=== PATIENT | female | born 1965 | race Caucasian/White ===

== ENCOUNTER 2016-12-08 12:01 | Emergency (ER) | payer OTHER ==
[~2016-12-08 12:01] MED LIST: ALPRAZOLAM; BACTRIM DS TABL1 TAB PO; CELEXA PO; CLONIDINE PO; DICLOFENAC PO; DICYCLOMINE HCL20 MG PO; DOXYCYCLINE PO; FENOFIBRATE130 MG PO; FLEXERIL PO; FLEXERIL10 M1 PO; IBUPROFEN800 MG PO; KEPPRA500 M2 PO; KLONOPIN PO; LORTAB 101 TAB 10/5 PO; METHADONE PO; MIRALAX17 GM PO; MOTRIN PO; NAPROXEN PO; NEURONTIN PO; NO MEDICATIONS; NORVASC10 MG PO; PAXIL PO; PERCOCET PO; PHENERGAN PO; PHENERGAN25 MG PO; PRILOSEC PO; PRILOSEC20 MG PO; SEROQUEL PO; SEROQUEL XR150 MG PO; SEROQUEL XR200 MG PO; TERBINAFINE HC250 M1 PO; TOPROL XL PO; TRAZODONE PO; TRIGLIDE160 M1; VICODIN 5/500 T1 TAB PO; VISTARIL PO; VOLTAREN75 MG PO; [UNRECOGNIZED DRUG - OTHER]; [UNRECOGNIZED DRUG - OTHER] PO
[2016-12-08 13:37] LABS: BASOPHIL% 0.7 % (0-2.5); EOSINOPHIL# 0.1 X10e3 (0-0.7); EOSINOPHIL% 1.8 % (0.0-7.0); HEMATOCRIT 36.8 % (35.0-45.0); HEMOGLOBIN 12.3 gm/dL (12.0-16.0); LYMPHOCYTE# 1.7 X10e3 (1.0-3.5); LYMPHOCYTE% 23.3 % (17.0-45.0); MEAN CELL VOLUME 87.6 FL (83-96); MEAN CORPUSCULAR HEMOGLOBIN 29.2 PG (28-34); MEAN CORPUSCULAR HGB CONC 33.4 g/dL (30-36); MEAN PLATELET VOLUME 8.6 FL (6.5-11.5); MONOCYTE# 0.6 X10e3 (0-1.0); MONOCYTE% 8.5 % (3.0-12.0); NEUTROPHIL# 4.7 X10e3 (1.5-7.1); NEUTROPHIL% 65.7 % (40-75); PLATELET COUNT 242 X10e3 (140-420); RED CELL DISTRIBUTION WIDTH 13.9 % (11.0-15.5); WHITE BLOOD COUNT 7.2 X10e3 (4.0-10.5)
[2016-12-08 13:38] LABS: DIFF IND NO
[2016-12-08 13:56] LABS: CALCIUM SERUM 8.8 mg/dL (8.4-10.2); CREATININE SERUM 0.6 mg/dL (0.6-1.4); POTASSIUM 3.6 mmol/L (3.5-5.1)
== END 2016-12-08 14:57 | disposition home or self-care (01) ==
LOC: SED 12:01
PROVIDERS: Emergency Medicine
DX: L02.512 Cutaneous abscess of left hand (principal); G47.00 Insomnia, unspecified; F32.9 Major depressive disorder, single episode, unspecified; F41.9 Anxiety disorder, unspecified; K21.9 Gastro-esophageal reflux disease without esophagitis; F17.200 Nicotine dependence, unspecified, uncomplicated; Z90.49 Acquired absence of other specified parts of digestive tract
CPT/HCPCS: 10060; 36415; 80048; 85025; 96372; 99283; J1170; J2405

== ENCOUNTER 2017-01-17 14:11 | Emergency (ER) | payer OTHER ==
--- NOTE | ~2017-01-17 | CR117 ---
[facility] A Service of [facility] RADIOLOGY TEXT RESULTS PATIENT: ANALISA MAIER LOCATION: SED : 67 UNIT #: [id number] AGE: [address]: Serina Esquivel SEX: F ORDER DR: [id number] [address] [address] [id number] E MR#: [id number] Acc #: [id number] NAME: ANALISA MAIER. : 1965 SEX: F STUDY DATE/TIME: 01/17/2017 14:24 UNIT: SED ROOM: STUDY DESCRIPTION: CR Finger 2 View Thumb Rt Attending Physician: Serina Esquivel Pa-C Ordering Physician: Serina Esquivel Pa-C MEDICAL IMAGING REPORT This report is preliminary unless electronic signature is present. EXAMINATION 3 views, right thumb. DATE 01/17/2017 HISTORY Right thumb pain, swelling and cellulitis for 4 days. No documented injury. COMPARISON None. FINDINGS No fracture. No dislocation. No plain film evidence of osteomyelitis. No subcutaneous air is seen. No retained radiopaque foreign body. IMPRESSION Normal 3 views of the right thumb. Dictated by... Sarah Ramos M.D. THIS IS AN ELECTRONICALLY VERIFIED REPORT Sarah Ramos M.D. at 01/20/2017 8:32 AM MICHELLE/nicola TD: 01/17/2017 17:16 JOB #: [id number] MEDICAL IMAGING REPORT [facility] A Service of [facility] RADIOLOGY TEXT RESULTS PATIENT: ANALISA MAIER LOCATION: SED : 67 UNIT #: [id number] AGE: [address]: Serina Esquivel SEX: F ORDER DR: Page 1 of 1
== END 2017-01-17 15:03 | disposition home or self-care (01) ==
LOC: SED 14:11
DX: L03.011 Cellulitis of right finger (principal); F17.200 Nicotine dependence, unspecified, uncomplicated; K21.9 Gastro-esophageal reflux disease without esophagitis; F31.9 Bipolar disorder, unspecified; Z79.899 Other long term (current) drug therapy; X58.XXXA Exposure to other specified factors, initial encounter
CPT/HCPCS: 73140; 99283

== ENCOUNTER 2017-02-10 17:50 | Emergency (ER) | payer OTHER ==
--- NOTE | ~2017-02-10 | CR126 ---
[facility] A Service of [facility] RADIOLOGY TEXT RESULTS PATIENT: ANALISA MAIER LOCATION: SED : 67 UNIT #: [id number] AGE: [address]: Nevaeh Bartlett SEX: F ORDER DR: [id number] [place] [id number] E MR#: [id number] Acc #: [id number] NAME: ANALISA MAIER : 1965 SEX: F STUDY DATE/TIME: 02/10/2017 19:02 UNIT: SED ROOM: STUDY DESCRIPTION: CR Foot Complete Min 3 View Lt Attending Physician: Nevaeh Bartlett Pa-C Ordering Physician: Nevaeh Bartlett Pa-C Primary Care Physician: Charli Vásquez M.D. MEDICAL IMAGING REPORT This report is preliminary unless electronic signature is present. EXAM Left foot, 02/10 INDICATION Foot redness and swelling that started 3-4 days ago on the top of the foot and laterally. No trauma. FINDINGS Three views of the left foot were obtained. There is some degenerative disease of the first MTP joint and there is probably a small bunion on the head of the first metatarsal. No fracture or malalignment is seen. There is some soft tissue swelling on the dorsum of the foot, but there is no soft tissue gas or radiopaque foreign body. IMPRESSION Soft tissue swelling without soft tissue gas or radiopaque foreign body. No fracture. Mild degenerative disease of the first MTP joint with a small bunion on the head of the first metatarsal. Dictated by... Stephan Lawrence Jr., M.D. THIS IS AN ELECTRONICALLY VERIFIED REPORT Stephan Lawrence Jr., M.D. at 02/11/2017 10:04 AM CORTES/christian TD: 02/11/2017 07:58 JOB #: [id number] MEDICAL IMAGING REPORT Page 1 of 1
== END 2017-02-10 19:59 | disposition home or self-care (01) ==
LOC: SED 17:50
DX: L03.116 Cellulitis of left lower limb (principal); I10 Essential (primary) hypertension; K21.9 Gastro-esophageal reflux disease without esophagitis; F31.9 Bipolar disorder, unspecified; F17.210 Nicotine dependence, cigarettes, uncomplicated; Z90.49 Acquired absence of other specified parts of digestive tract; Z98.890 Other specified postprocedural states
CPT/HCPCS: 73630; 99283

== ENCOUNTER 2017-02-13 13:16 | Inpatient (IN) | payer OTHER ==
--- NOTE | ~2017-02-13 | DS ---
Unit #: [id number] #: [id number] Patient: ANALISA MAIER [id number] [address] [address] [id number] I MR#: [id number] NAME: ANALISA MAIER. ROOM: 469 Age: 51 Sex: F Admission Date: 02/13/2017 : 1965 Discharge Date: 02/16/2017 Attending Physician: Charli Vásquez M.D. Primary Care Physician: Charli Vásquez M.D. DISCHARGE SUMMARY PRINCIPAL DISCHARGE DIAGNOSES 1. Abscess, left anterior foot. 2. Status post incision and drainage of left foot 02/14/17. 3. Bipolar disorder. 4. Generalized anxiety disorder. 5. Major depressive disorder. 6. Tobacco use. 7. Hypertension. 8. Hyperglycemia with normal hemoglobin A1c. 9. Anemia of chronic disease. 10. Metabolic acidosis. PROCEDURE I and D 02/14/17 of left foot by Dr. Brooks. NETWORK COORDINATOR LSA. REASON FOR HOSPITALIZATION 51-year-old white female was apparently at [facility] when she developed a blister on the top of her left foot. Treated with p.o. antibiotics as an outpatient but worsening. Subsequently, directed admitted by her primary care physician for further evaluation. She was admitted, placed on broad spectrum antibiotics, underwent I and D of the left foot on the , had hyperglycemia on admission. Hemoglobin A1c was checked and was within normal limits. The patient tolerated surgery well. Her wound is dry and clean without any evidence of infection currently. Dr. Brooks, the surgeon, feels that she can be discharged home with dressing changes and outpatient followup but no p.o. antibiotics. She is on a regular diet as tolerates. CURRENT MEDICATIONS 1. Prilosec 40 mg p.o. daily. 2. [place] 10/325, one q.4 to 6 hours p.r.n. for pain, #60 with no refills. 3. Neurontin 600 mg p.o. t.i.d. 4. Paxil 20 mg p.o. daily. 5. Seroquel XR 400 mg p.o. daily. 6. Klonopin 1 mg p.o. q.i.d. 7. Amlodipine 10 mg p.o. daily. 8. Clonidine 0.2 mg p.o. b.i.d. She will follow up with Dr. Vásquez in one week and follow up with Dr. Brooks in one to two weeks. She is to have wet to dry dressing changes Unit #: [id number] #: [id number] Patient: LIVIERANALISAEdith Moseley b.i.d. Dictated by... Evelio Oliva/leidy TD: 02/18/2017 08:29 JOB #: [id number] DISCHARGE SUMMARY Page 1 of 1 X Praveen Pfeiffer MD X DISCHARGE SUMMARY
--- NOTE | ~2017-02-13 | DS ---
Unit #: [id number] #: [id number] Patient: ANALISA JOHNS [id number] [address] [address] [id number] I MR#: [id number] NAME: ANALISA JOHNS ROOM: 469 Age: 51 Sex: F Admission Date: 02/13/2017 : 1965 Discharge Date: 02/16/2017 Attending Physician: Charli Vásquez M.D. Primary Care Physician: Charli Vásquez M.D. DISCHARGE SUMMARY HOSPITAL COURSE Ms. Johns is a 51-year-old female who presented in the emergency room with a wound on the dorsum of the left foot that measured 6 x 5 cm. It was necrotic with fluctuance, edema and cellulitis. She is admitted to the hospital and started on IV antibiotics and taken to the operating room where she underwent full thickness debridement of the necrotic sound down to the tendons. She was admitted to the hospital and continued on IV antibiotics. Dressing changes were initiated. Physical therapy saw the patient to teach partial weightbearing. She has been taught dressing changes and VNA has been asked to see the patient to assist her at home. She will be discharged home today in stable condition. She is to continue her dressing changes twice a day and followup in the office in one to two weeks. She was given a prescription for a walker at physical therapy's recommendation. A prescription for hydrocodone was left. Med reconciliation sheet was completed. Dictated by... Stephan Brooks M.D. NANCY/ellis TD: 02/18/2017 08:05 JOB #: [id number] DISCHARGE SUMMARY Page 1 of 1 X Stephan Brooks MD X DISCHARGE SUMMARY
--- NOTE | ~2017-02-13 | HP ---
Unit #: [id number] #: [id number] Patient: ANALISA MAIER [id number] [address] [place], [place] [address] [id number] I MR#: [id number] NAME: ANALISA MAIER. ROOM: 469 Age: 51 Sex: F Admission Date: 02/13/2017 : 1965 Attending Physician: Charli Vásquez M.D. Primary Care Physician: Charli Vásquez M.D. HISTORY AND PHYSICAL HISTORY AND EXAM Ms. Maier is a 51-year-old female who went to the [facility] with her daughter and granddaughter. She developed a blister on the anterior portion of the left foot. This has had progressive swelling, erythema and now has a necrotic eschar measuring 6 x 5 cm over the dorsum of the foot. Plain x-rays showed no fracture or foreign body. She does not recall any trauma. PAST MEDICAL HISTORY Hypertension, mitral valve prolapse, remote history of seizures, depression, , T and A, appendectomy, bipolar disorder, appendectomy, reflux. HOME MEDICATIONS Are documented on the reconciliation sheet and include Paxil, Norvasc, Catapres, Seroquel, Klonopin, Prilosec, and Neurontin. ALLERGIES No allergies to medication. FAMILY HISTORY Diabetes and hypertension. SOCIAL HISTORY Lives with family at home, pack a day smoker. Denies the use of alcohol or recreational drugs. REVIEW OF SYSTEMS She denies trauma to the foot, otherwise unremarkable. PHYSICAL EXAMINATION VITAL SIGNS: Current temperature is 91, pulse 63, respirations 17, blood pressure 98/67. She is awake, alert and oriented in no acute distress. HEENT: Unremarkable. CARDIAC: Regular rhythm. LUNGS: Clear. ABDOMEN: Soft. EXTREMITIES: 6 x 5 cm black eschar over the dorsum of the left foot with associated cellulitis and probable underlying purulence because it is fluctuant but it is exquisitely tender. She has good vascular supply. NEUROLOGIC: Grossly intact. DIAGNOSTIC STUDIES LABORATORY STUDIES: Chemistries are unremarkable. White count 5,100, Unit #: [id number] #: [id number] Patient: ANALISA MAIER hemoglobin 10.8, platelets 158,000. IMAGING STUDIES: Plain films - no foreign body, no fracture, no dislocation. ASSESSMENT AND PLAN 51-year-old female who has developed a necrotic eschar over the dorsal left foot with associated cellulitis. It is exquisitely tender but I believe it to be fluctuant. She needs operative debridement. She is already on appropriate antibiotics. I discussed procedures with the patient including the risks, benefits, complications, postoperative expectations, and she understands and agrees to proceed. Dictated by Evelio Lu/ellis TD: 02/14/2017 08:26 JOB #: [id number] HISTORY AND PHYSICAL Page 1 of 1 X Stephan Brooks MD X HISTORY AND PHYSICAL
--- NOTE | ~2017-02-13 | HP ---
Unit #: [id number] #: [id number] Patient: ANALISA JOHNS [id number] [address] [place], [place] [address] [id number] I MR#: [id number] NAME: ANALISA JOHNS. ROOM: 469 Age: 51 Sex: F Admission Date: 02/13/2017 : 1965 Attending Physician: Charli Vásquez M.D. Primary Care Physician: Charli Vásquez M.D. HISTORY AND PHYSICAL ADMISSION DIAGNOSES 1. Left foot cellulitis. 2. Bipolar disorder. 3. Depression and anxiety. 4. Tobacco use. 5. Hypertension. 6. Hyperglycemia with questionable daily. 7. Anemia of chronic disease. 8. Metabolic acidosis. HISTORY OF PRESENT ILLNESS Miss Johns is a 51-year-old female patient of Dr. Vásquez who apparently went to [facility] with her family, since then developed the blisters on her left foot, was treated with the p.o. antibiotics as an outpatient. However, her lesion was getting worse and subsequently directly admitted by primary care physician for further evaluation. She is currently status post General Surgery evaluation and patient went down to OR and had the debridement of her left foot cellulitis. She denies any chest pain, shortness of air or dyspnea, fever or chills, nausea or vomiting, diarrhea or abdominal pain, states that her pain is well managed currently. REVIEW OF SYSTEMS A 12-point review of systems on this patient is basically negative except as above. PAST MEDICAL HISTORY Past medical history is significant for a history of: 1. Hypertension. 2. Depression/anxiety. 3. Bipolar disorder. PAST SURGICAL HISTORY Past surgical history is significant for: 1. . 2. Appendectomy. HOME MEDICATIONS She apparently was taking Seroquel, Klonopin, clonidine, Prilosec and Neurontin along with the Paxil and Norvasc. ALLERGIES No known drug allergies. Unit #: [id number] #: [id number] Patient: ANALISA JOHNS SOCIAL HISTORY She is a smoker, denies any alcohol or illicit drugs. FAMILY HISTORY Unremarkable. PHYSICAL EXAMINATION GENERAL: On the physical exam patient is a somewhat disheveled 51-year-old female not in acute distress. VITAL SIGNS: BP 104/65. Heart rate 69. Respirations 18. Temperature 98.1. HEENT: Head is atraumatic. Pupils equal, round and reactive to light and accommodation. Extraocular muscles intact. Oropharynx clear. NECK: Neck is supple. No mass. No JVD. No bruits. CHEST: Diminished bilaterally. CARDIOVASCULAR EXAM: S1, S2. No murmurs. ABDOMEN: Abdomen is soft, nontender and nondistended. EXTREMITIES: Lower extremities without any significant cyanosis, clubbing or edema on the right. On the left she has extensive clean dressing currently including foot and lower extremity below the knee. NEUROLOGIC: Patient grossly intact without any focal deficits. DIAGNOSTIC STUDIES IMAGING: X-ray was unremarkable. LABORATORY: Hemoglobin and hematocrit 10.8 and 34.1, white count 5.1. Chemistry significant for blood glucose of 142, bicarb of 19. ASSESSMENT AND PLAN 1. Left foot cellulitis status post debridement per Surgery: Continue local wound care. Continue current antibiotics. 2. Extensive psych history including depression, anxiety, bipolar disorder: Resume home medications. 3. Hypertension: Continue home meds. 4. Hyperglycemia: Will check hemoglobin A1C, rule out diabetes, will cover with the low sliding scale. 5. Metabolic acidosis: Monitor chemistry panel. Consider nephrology evaluation. 6. Anemia of chronic disease, stable. 7. GI and DVT prophylaxis: Continue Protonix. Will start on heparin 5000 units subcu b.i.d. Dictated by Andrés Echeverria M.D. OC/campos TD: 02/14/2017 21:27 JOB #: [id number] Unit #: [id number] #: [id number] Patient: ANALISA JOHNS HISTORY AND PHYSICAL Page 1 of 1 X Andrés Echeverria MD HISTORY AND PHYSICAL
--- NOTE | ~2017-02-13 | OR ---
Unit #: [id number] #: [id number] Patient: ANALISA MAIER [id number] [address] [place], [place] [address] [id number] I MR#: [id number] NAME: ANALISA MAIER. ROOM: 469 Date of Procedure: 02/14/2017 Admission Date: 02/13/2017 Surgeon: Stephan Brooks M.D. : 1965 Attending Physician: Charli Vásquez M.D. Primary Care Physician: Charli Vásquez M.D. OPERATIVE REPORT PREOPERATIVE DIAGNOSIS 6 x 5 cm abscess left dorsum of the foot with superficial skin necrosis. POSTOPERATIVE DIAGNOSIS 6 x 5 cm abscess left dorsum of the foot with superficial skin necrosis. PROCEDURE PERFORMED Incision and drainage of abscess with sharp excisional debridement of necrotic tissue of the left anterior foot measuring 6 x 5 cm and extending down to the tendon sheaths. Aerobic and anaerobic cultures were taken. ANESTHESIA General endotracheal anesthesia. ESTIMATED BLOOD LOSS 30 mL. INDICATIONS FOR PROCEDURE A 51-year-old female presented to the hospital with a fluctuant necrotic abscess to the dorsum of the left foot with associated cellulitis. DESCRIPTION OF PROCEDURE The patient was transported from her hospital room to the operating room, and after induction of general endotracheal anesthesia, the left foot and ankle up to the mid calf were prepped and draped in usual sterile fashion. The necrotic eschar was opened and thick purulent drainage was encountered and cultures were taken. We then suctioned out the purulent drainage and then sharply debrided all the necrotic and nonviable tissue from the wound. The wound extended down through the substance of the foot to the tendon sheaths. The tendons were not involved. Once it had been completely debrided and all necrotic and infected material removed, I irrigated and then obtained hemostasis using cautery. The wound was packed with fluffs, sponges soaked in Betadine and wrung out followed by dry 4x4s, Kerlix, and an [place] wrap. Sponges and needle counts were correct x3. The patient tolerated the procedure well and was transported to recovery in stable condition. She will be readmitted to her hospital room for continued IV antibiotics and initiation of local wound care in the morning. There was no family available at the end of the case to discuss the findings with. The wound measured 6 x 5 cm. Dictated by... Unit #: [id number] #: [id number] Patient: ANALISA MAIER M.D. RS/damion TD: 02/15/2017 03:00 JOB #: [id number] OPERATIVE REPORT Page 1 of 1 X Stephan Brooks MD PROCEDURE OPERATIVE NOTE
[2017-02-13 14:02] LABS: BASOPHIL% 0.5 % (0-2.5); EOSINOPHIL# 0.1 X10e3 (0-0.7); EOSINOPHIL% 2.3 % (0.0-7.0); HEMATOCRIT 37.3 % (35.0-45.0); HEMOGLOBIN 12.1 gm/dL (12.0-16.0); LYMPHOCYTE# 1.5 X10e3 (1.0-3.5); LYMPHOCYTE% 29.9 % (17.0-45.0); MEAN CELL VOLUME 88.3 FL (83-96); MEAN CORPUSCULAR HEMOGLOBIN 28.7 PG (28-34); MEAN CORPUSCULAR HGB CONC 32.5 g/dL (30-36); MEAN PLATELET VOLUME 9.1 FL (6.5-11.5); MONOCYTE# 0.6 X10e3 (0-1.0); MONOCYTE% 11.3 % (3.0-12.0); NEUTROPHIL# 2.9 X10e3 (1.5-7.1); PLATELET COUNT 171 X10e3 (140-420); RED BLOOD COUNT 4.22 X10e (3.90-5.30); RED CELL DISTRIBUTION WIDTH 15.3 % (11.0-15.5); WHITE BLOOD COUNT 5.1 X10e3 (4.0-10.5)
[2017-02-13 14:08] LABS: DIFF IND NO
[2017-02-13 14:18] LABS: BUN/CREATININE RATIO 19.09; CALCIUM SERUM 8.7 mg/dL (8.4-10.2); CREATININE SERUM 1.1 mg/dL (0.6-1.4); GLOM FILT RATE Estimated 58.9 mL/min (>60); POTASSIUM 3.9 mmol/L (3.5-5.1)
[2017-02-13] MEDS ORDERED: NORVASC10 MG PO (14:40)
[2017-02-14 02:21] LABS: BASOPHIL% 0.7 % (0-2.5); EOSINOPHIL# 0.1 X10e3 (0-0.7); EOSINOPHIL% 2.6 % (0.0-7.0); HEMATOCRIT 34.1 % (35.0-45.0); HEMOGLOBIN 10.8 gm/dL (12.0-16.0); LYMPHOCYTE# 1.3 X10e3 (1.0-3.5); LYMPHOCYTE% 25.1 % (17.0-45.0); MEAN CELL VOLUME 88.2 FL (83-96); MEAN CORPUSCULAR HGB CONC 31.7 g/dL (30-36); MEAN PLATELET VOLUME 8.9 FL (6.5-11.5); MONOCYTE# 0.6 X10e3 (0-1.0); MONOCYTE% 12.3 % (3.0-12.0); NEUTROPHIL% 59.3 % (40-75); PLATELET COUNT 158 X10e3 (140-420); RED BLOOD COUNT 3.86 X10e (3.90-5.30); RED CELL DISTRIBUTION WIDTH 14.9 % (11.0-15.5); WHITE BLOOD COUNT 5.1 X10e3 (4.0-10.5)
[2017-02-14 02:22] LABS: DIFF IND NO
[2017-02-14 02:44] LABS: ALBUMIN SERUM 3.1 g/dL (3.5-5.0); BILIRUBIN,TOTAL 0.5 mg/dL (0.2-2.0); BUN/CREATININE RATIO 28.33; CALCIUM SERUM 8.2 mg/dL (8.4-10.2); CREATININE SERUM 0.6 mg/dL (0.6-1.4); POTASSIUM 3.8 mmol/L (3.5-5.1); PROTEIN TOTAL SERUM 6.5 g/dL (6.0-8.3)
[2017-02-15 03:00] LABS: HEMATOCRIT 37.3 % (35.0-45.0); HEMOGLOBIN 11.9 gm/dL (12.0-16.0); MEAN CORPUSCULAR HEMOGLOBIN 27.9 PG (28-34); MEAN CORPUSCULAR HGB CONC 31.7 g/dL (30-36); MEAN PLATELET VOLUME 9.1 FL (6.5-11.5); RED BLOOD COUNT 4.24 X10e (3.90-5.30); RED CELL DISTRIBUTION WIDTH 14.9 % (11.0-15.5); WHITE BLOOD COUNT 4.7 X10e3 (4.0-10.5)
[2017-02-15 03:49] LABS: BUN/CREATININE RATIO 14.28; CALCIUM SERUM 8.4 mg/dL (8.4-10.2); CREATININE SERUM 0.7 mg/dL (0.6-1.4); GLOM FILT RATE Estimated 101.7 mL/min (>60); POTASSIUM 4.3 mmol/L (3.5-5.1)
[2017-02-16] MEDS ORDERED: LORCET HD 10-31 EACH PO (10:31)
[2017-02-16] MEDS ORDERED: DAKIN'S473 M1 TOP (10:36)
== END 2017-02-16 13:11 | disposition home health service (06) | DRG 571 ==
LOC: SED 13:16 → SEDOF 13:49 → SED 13:49 → SEDOF 14:20 → C4C 14:20 → SEDOF 16:08 → C4C 02-16 13:11
PROVIDERS: Emergency Medicine; Internal Medicine; Specialist; Surgery
PROC: 0J9R0ZZ Drainage of Left Foot Subcutaneous Tissue and Fascia, Open Approach (ICD-10-PCS; 2017-02-14)
PROC: 0JBR0ZZ Excision of Left Foot Subcutaneous Tissue and Fascia, Open Approach (ICD-10-PCS; principal; 2017-02-14 12:30)
DX: L02.612 Cutaneous abscess of left foot (principal); E87.2 Acidosis; F31.9 Bipolar disorder, unspecified; Z83.3 Family history of diabetes mellitus; F41.8 Other specified anxiety disorders; D63.8 Anemia in other chronic diseases classified elsewhere; R73.9 Hyperglycemia, unspecified; F41.1 Generalized anxiety disorder; Z72.0 Tobacco use
CPT/HCPCS: 36415; 80048; 80053; 80202; 82947; 83036; 84703; 85025; 85027; 86140; 87070; 87075; 87205; 88304; 88312; 96365; 96375; 97116; 97162; 99284; J1170; J1644; J1815; J1885; J1956; J2250; J2270; J2405; J2550; J3010; J3370

== ENCOUNTER → 2017-03-18 | Day surgery (SDC) | payer OTHER ==
[~2017-03-18] MED LIST changes: +DAKIN'S473 M1 TOP; +LORCET HD 10-31 EACH PO
--- NOTE | ~2017-03-18 | OR ---
Unit #: [id number] #: [id number] Patient: ANALISA MAIER [id number] [address] [place], [place] [address] [id number] O MR#: [id number] NAME: ANALISA MAIER ROOM: Date of Procedure: 03/18/2017 Admission Date: 03/18/2017 Surgeon: Stephan Brooks M.D. : 1965 Attending Physician: Stephan Brooks M.D. Primary Care Physician: Charli Vásquez M.D. PROCEDURE OPERATIVE NOTE PREOPERATIVE DIAGNOSIS Non-healing wound of the left foot. POSTOPERATIVE DIAGNOSIS Non-healing wound of the left foot. PROCEDURE PERFORMED Sharp excisional debridement down to the deep subcutaneous tissue and tendons measuring 5 x 6 cm. Placement of an EpiFix graft. Application code 79108, product code Q4131 using a 4 x 4.5 cm sheet for a total of 11 units. SURGEON Stephan Brooks M.D. ANESTHESIA General endotracheal. INDICATION Ms. Maier is a 51-year-old female who initially presented to the hospital with a full thickness, necrotic wound to the dorsum of the left foot. She had associated cellulitis, was admitted to the hospital and given antibiotics and underwent initial surgical debridement. Dressing changes were initiated and on her first followup in the office, she still had some nonviable tissue and failure of granulation with exposed tendons. She is being brought in today for further debridement and grafting of the wounds since it shows no evidence of granulation or healing. PROCEDURE The patient was admitted to [facility]. [facility], positively identified, transported to the operating room where, after induction of general endotracheal anesthesia, her left foot, ankle and lower leg were prepped and draped in the usual sterile fashion. Using scissors and a scalpel, sharp debridement of all nonviable tissue was performed. The tendons were intact. I irrigated with saline and obtained hemostasis and then a 4 x 4.5 cm EpiFix mesh was placed. It was gently irrigated and then a nonadherent dressing was placed over the mesh followed by 4 x 4 dressing sponges, Kerlix and Coban. After it was adequately dressed, the patient was transported to recovery in stable condition. Postoperative instructions were discussed with her mother who will be transporting the patient home. Unit #: [id number] #: [id number] Patient: ANALISA MAIER Dictated by... Evelio Lu/leidy TD: 04/01/2017 05:58 JOB #: [id number] PROCEDURE OPERATIVE NOTE Page 1 of 1 X Stephan Brooks MD PROCEDURE OPERATIVE NOTE
--- NOTE | ~2017-03-18 | EKG ---
PATIENT: ANALISA MAIER UNIT #: [id number] Ventricular Rate: 69 BPM Atrial Rate: 69 BPM P-R Interval: 154 ms QRS Duration: 92 ms Q-T Interval: 410 ms QTC Calculation(Bezet): 439 ms P [place]: 75 degrees Calculated R [place]: 51 degrees Calculated T [place]: 51 degrees Diagnosis Line: Normal sinus rhythm Diagnosis Line: Normal ECG Diagnosis Line: When compared with ECG of 27-AUG-2015 17:08, Diagnosis Line: No significant change was found Diagnosis Line: Confirmed by HIGINIO MCNEAL MD ([id number]) on Diagnosis Line: 03/19/2017 8:29:03 AM INTERPRETING MD: ELIZABET TSANG
[2017-03-18 10:20] LABS: BASOPHIL% 0.9 % (0-2.5); EOSINOPHIL# 0.2 X10e3 (0-0.7); EOSINOPHIL% 3.9 % (0.0-7.0); HEMATOCRIT 37.1 % (35.0-45.0); HEMOGLOBIN 11.8 gm/dL (12.0-16.0); LYMPHOCYTE# 1.5 X10e3 (1.0-3.5); LYMPHOCYTE% 35.4 % (17.0-45.0); MEAN CELL VOLUME 88.4 FL (83-96); MEAN CORPUSCULAR HEMOGLOBIN 28.1 PG (28-34); MEAN CORPUSCULAR HGB CONC 31.7 g/dL (30-36); MEAN PLATELET VOLUME 8.8 FL (6.5-11.5); MONOCYTE# 0.4 X10e3 (0-1.0); MONOCYTE% 8.7 % (3.0-12.0); NEUTROPHIL# 2.2 X10e3 (1.5-7.1); NEUTROPHIL% 51.1 % (40-75); PLATELET COUNT 169 X10e3 (140-420); RED CELL DISTRIBUTION WIDTH 15.9 % (11.0-15.5); WHITE BLOOD COUNT 4.3 X10e3 (4.0-10.5)
[2017-03-18 10:21] LABS: DIFF IND NO
[2017-03-18 11:21] LABS: BUN/CREATININE RATIO 18.75; CALCIUM SERUM 9.1 mg/dL (8.4-10.2); CREATININE SERUM 0.8 mg/dL (0.6-1.4); GLOM FILT RATE Estimated 86.6 mL/min (>60); POTASSIUM 3.9 mmol/L (3.5-5.1)
== END | disposition home or self-care (01) ==
LOC: CSUR 08:30
PROVIDERS: Specialist
DX: T81.4XXA Infection following a procedure, initial encounter (principal); S91.302A Unspecified open wound, left foot, initial encounter; L02.91 Cutaneous abscess, unspecified; F17.210 Nicotine dependence, cigarettes, uncomplicated; Z79.899 Other long term (current) drug therapy; Z90.49 Acquired absence of other specified parts of digestive tract; Z98.890 Other specified postprocedural states; Y83.8 Other surgical procedures as the cause of abnormal reaction of the patient, or of later complication, without mention of misadventure at the time of the procedure
CPT/HCPCS: 15275; Q4131; 80048; 84703; 85025; 93005; C1713; J2250; J2405; J3010; J3370

== ENCOUNTER 2017-03-25 19:28 | Emergency (ER) | payer OTHER ==
--- NOTE | ~2017-03-25 | CT16 ---
[facility] A Service of [facility] RADIOLOGY TEXT RESULTS PATIENT: ANALISA MAIER LOCATION: SED : [birth year] UNIT #: [id number] AGE: [address]: Clovis Frias MD SEX: F ORDER DR: [id number] [place] [id number] MR#: [id number] Acc #: [id number] NAME: ANALISA MAIER. : 1965 SEX: F STUDY DATE/TIME: 03/25/2017 21:13 UNIT: SED ROOM: STUDY DESCRIPTION: CT Angio Chest for PE Attending Physician: Clovis Frias M.D. Ordering Physician: Clovis Frias M.D. Primary Care Physician: Charli Vásquez M.D. MEDICAL IMAGING REPORT This report is preliminary unless electronic signature is present. EXAM Chest CTA 03/25/2017 21:13 INDICATION Chest pain, shortness of air started today. Elevated D-dimer. TECHNIQUE Axial images were obtained through the chest following IV contrast administration. 3-D reformats were obtained. No comparison. This CT examination was performed with one or more of the following radiation dose reduction techniques: automatic exposure control, adjustment of mA and/or kV according to patient size, and iterative reconstruction. FINDINGS There is no pulmonary embolism or aortic dissection. There is no pleural or pericardial effusion. There is no adenopathy. There is emphysema. There is dependent atelectasis in both lungs. The lungs are otherwise clear. Upper abdomen shows a distended but otherwise normal gallbladder. No biliary obstruction is seen. IMPRESSION 1. No pulmonary embolism or aortic dissection. 2. Emphysema. Lungs are clear except for some bilateral mild dependent atelectasis. 3. Mildly distended but otherwise normal gallbladder. Dictated by... Stephan Lawrence Jr., M.D. THIS IS AN ELECTRONICALLY VERIFIED REPORT Stephan Lawrence Jr., M.D. at 03/26/2017 9:[address] [facility] A Service of [facility] RADIOLOGY TEXT RESULTS PATIENT: ANALISA MAIER [facility] #: [id number] : [birth year] UNIT #: [id number] AGE: [address]: Clovis Frias MD SEX: F ORDER DR: CORTES/rajesh TD: 03/26/2017 08:48 JOB #: [id number] MEDICAL IMAGING REPORT Page 1 of 1
--- NOTE | ~2017-03-25 | EKG ---
PATIENT: ANALISA MAIER UNIT #: [id number] Ventricular Rate: 84 BPM Atrial Rate: 84 BPM P-R Interval: 152 ms QRS Duration: 86 ms Q-T Interval: 384 ms QTC Calculation(Bezet): 453 ms P [place]: 65 degrees Calculated R [place]: 21 degrees Calculated T [place]: 51 degrees Diagnosis Line: Normal sinus rhythm Diagnosis Line: Normal ECG Diagnosis Line: When compared with ECG of 18-MAR-2017 09:11, Diagnosis Line: No significant change was found Diagnosis Line: Confirmed by HIGINIO MCNEAL MD ([id number]) on Diagnosis Line: 03/26/2017 2:34:00 PM INTERPRETING MD: ELIZABET TSANG
[2017-03-25 20:29] LABS: BASOPHIL% 0.6 % (0-2.5); EOSINOPHIL# 0.1 X10e3 (0-0.7); EOSINOPHIL% 1.9 % (0.0-7.0); HEMATOCRIT 35.8 % (35.0-45.0); HEMOGLOBIN 11.7 gm/dL (12.0-16.0); MEAN CELL VOLUME 87.4 FL (83-96); MEAN CORPUSCULAR HEMOGLOBIN 28.5 PG (28-34); MEAN CORPUSCULAR HGB CONC 32.6 g/dL (30-36); MEAN PLATELET VOLUME 8.3 FL (6.5-11.5); MONOCYTE# 0.5 X10e3 (0-1.0); NEUTROPHIL# 3.2 X10e3 (1.5-7.1); NEUTROPHIL% 54.5 % (40-75); PLATELET COUNT 188 X10e3 (140-420); RED BLOOD COUNT 4.09 X10e (3.90-5.30); RED CELL DISTRIBUTION WIDTH 15.9 % (11.0-15.5); WHITE BLOOD COUNT 5.8 X10e3 (4.0-10.5)
[2017-03-25 20:32] LABS: DIFF IND NO
[2017-03-25 20:38] LABS: INR 1.1; PROTHROMBIN TIME (PATIENT) 12.7 SECONDS (9.5-12.4)
[2017-03-25 20:45] LABS: PARTIAL THROMBOPLASTIN TIME 34.2 SECONDS (25.6-38.1)
[2017-03-25 20:46] LABS: POC - CKMB <1.0 ng/mL (0.0-7.9); POC - TROPONIN <0.05 ng/mL (<=0.05)
[2017-03-25 20:47] LABS: ALBUMIN SERUM 4.1 g/dL (3.5-5.0); ALKALINE PHOSPHATASE 55 U/L (32-92); ALT (SGPT) 12 U/L (10-40); AST (SGOT) 21 U/L (10-42); BILIRUBIN,TOTAL 0.3 mg/dL (0.2-2.0); BLOOD UREA NITROGEN 16 mg/dL (9-23); BUN/CREATININE RATIO 17.77; CALCIUM SERUM 8.8 mg/dL (8.4-10.2); CARBON DIOXIDE 21 mmol/L (22-31); CHLORIDE 109 mmol/L (100-111); CREATININE SERUM 0.9 mg/dL (0.6-1.4); GLOM FILT RATE Estimated 75.1 mL/min (>60); GLUCOSE FASTING 88 mg/dL (70-110); POTASSIUM 3.9 mmol/L (3.5-5.1); PROTEIN TOTAL SERUM 6.8 g/dL (6.0-8.3); SODIUM 136 mmol/L (135-145)
[2017-03-25 20:49] LABS: BILIRUBIN, DIRECT <0.1 mg/dL (0.0-0.2); BILIRUBIN,INDIRECT 0.2 mg/dL (0.0-0.9)
== END 2017-03-25 23:17 | disposition left against medical advice (07) ==
LOC: SED 19:28
PROVIDERS: Emergency Medicine
DX: R09.1 Pleurisy (principal); I10 Essential (primary) hypertension; F31.9 Bipolar disorder, unspecified; F17.200 Nicotine dependence, unspecified, uncomplicated; Z90.49 Acquired absence of other specified parts of digestive tract; Z98.890 Other specified postprocedural states
CPT/HCPCS: 36415; 71275; 80048; 80076; 82553; 84484; 84703; 85025; 85379; 85610; 85730; 93005; 96374; 99285; J1885; Q9967